=== PATIENT | male | born 1955 | race Caucasian/White ===

== ENCOUNTER → 2021-12-24 | Day surgery (SDC) | payer OTHER ==
[~2021-12-24] VITALS: Ht 170.2 cm; Wt 78.1 kg
[~2021-12-24] MED LIST: ALLERGY-TIME4 MG PO; CLONAZEPAM0.5 MG PO; ECHINACEA400 MG PO; MIRAPEX1 MG PO
== END | disposition home or self-care (01) ==
LOC: FAS 12-22 08:45
DX: Z12.11 Encounter for screening for malignant neoplasm of colon (principal); Z87.891 Personal history of nicotine dependence; Z88.1 Allergy status to other antibiotic agents
CPT/HCPCS: J2250; J2704; J7120